=== PATIENT | male | born 1970 | race Caucasian/White ===

== ENCOUNTER 2017-08-31 17:49 | Emergency (ER) | payer OTHER ==
[~2017-08-31] VITALS: Ht 198.1 cm; Wt 109.0 kg
[2017-08-31] MEDS ORDERED: ATENOLOL50 MG PO (17:58)
[2017-08-31] MEDS ORDERED: SYNTHROID25 MCG PO (17:58)
[2017-08-31] MEDS ORDERED: METFORMIN500 MG PO (17:58)
[2017-08-31] MEDS ORDERED: IBUPROFEN600 MG PO (19:39)
[2017-08-31 19:45] VITALS: BP 148/74
== END 2017-08-31 19:45 | disposition home or self-care (01) | DRG 552 ==
LOC: ED 17:49
DX: S16.1XXA Strain of muscle, fascia and tendon at neck level, initial encounter (principal); V43.52XA Car driver injured in collision with other type car in traffic accident, initial encounter; Y92.410 Unspecified street and highway as the place of occurrence of the external cause

== ENCOUNTER 2020-12-02 07:32 | Day surgery (SDC) | payer OTHER ==
[~2020-12-02] VITALS: Ht 185.4 cm; Wt 63.5 kg
[~2020-12-02 07:32] MED LIST: ASPIRIN81 MG PO; ATENOLOL50 MG PO; DEPO-TESTOS100 MG/ML IM; IBUPROFEN600 MG PO; MAXALT10 MG PO; MELOXICAM7.5 MG PO; METFORMIN500 M2 PO; OMEPRAZOLE DR40 MG PO; SYNTHROID25 MCG PO; TAMSULOSIN HCL0.4 MG PO; TRULICITY0.75 MG/0. SC
[2020-12-02 09:05] VITALS: BP 106/76
== END 2020-12-02 09:16 | disposition home or self-care (01) | DRG 392 ==
LOC: ENDO 07:32 → ORM 08:15 → ENDO 08:35
PROVIDERS: ATTEND Surgery
PROC: 0DJD8ZZ Inspection of Lower Intestinal Tract, Via Natural or Artificial Opening Endoscopic (ICD-10-PCS; principal; 2020-12-02)
DX: K59.00 Constipation, unspecified (principal); K42.9 Umbilical hernia without obstruction or gangrene; Z87.891 Personal history of nicotine dependence